=== PATIENT | female | born 1950 | race Caucasian/White ===

== ENCOUNTER 2018-01-16 04:24 | Emergency (ER) | payer OTHER ==
[~2018-01-16] VITALS: Ht 157.5 cm; Wt 81.6 kg
[2018-01-16] MEDS ORDERED: EPINEPHRINE (1:10,000) SYRINGE 1 MG/10 ML DISP.SYRIN IVP ONE (04:25)
[2018-01-16] MEDS ORDERED: SODIUM BICARBONATE SYR 50 MEQ/50 ML DISP.SYRIN IV ONE (04:25)
[2018-01-16] MEDS ORDERED: CALCIUM CHLORIDE 1,000 MG/10 ML DISP.SYRIN IV ONE (04:25)
--- NOTE | 2018-01-16 04:25 | NUR ---
PT TO ER ER BED 8. [id number] FROM HOME IN FULL ARREST, CPR IN PROGRESS BY PARAMEDICS. WITNESSED ARREST BY FAMILY, CPR WAS NOT STARTED UNTIL PARAMEDICS ARRIVED. 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 ACLS RESUMED UPON ARRIVAL, DR MOLINA AT BEDSIDE. RT AT BEDSIDE FOR INTUBATION. SEE INTUBATION NOTES. SEE CODE BLUE RECORD.
--- NOTE | 2018-01-16 04:45 | NUR ---
TIME OF CALLED BY DR MOLINA @[id number].
--- NOTE | 2018-01-16 05:09 | NUR ---
[facility] CALLED. REPORTED TO MELRUDE. CASE # [id number]
--- NOTE | 2018-01-16 05:25 | NUR ---
[facility] . PER [facility]ON[facility] CASE.
--- NOTE | 2018-01-16 05:30 | NUR ---
DR MOLINA AT BEDSIDE TO NOTIFY FAMILY. PT FAMILY AT BEDSIDE.
--- NOTE | 2018-01-16 09:10 | NUR ---
[place] SARA GOMEZ BY EMT AND SECURITY
== END 2018-01-16 07:14 | disposition expired ==
LOC: EDBD 04:26 → ER 04:26
DX: I46.9 Cardiac arrest, cause unspecified (principal); I25.2 Old myocardial infarction
CPT/HCPCS: 82962-TC; J0171; J3490